=== PATIENT | female | born 1960 | race Caucasian/White ===

== ENCOUNTER 2023-09-14 10:06 | Outpatient (RCR) | payer MEDICARE, OTHER, SELFPAY ==
[2023-08-30] VITALS (9 sets, daily range): BP systolic 117–146; BP diastolic 66–91
[2023-08-30] MEDS: SOLU-MEDROL PF 1.91999999999999993 MG IV (11:21)
[2023-08-30] MEDS: TYLENOL 650 MG PO (11:21)
[2023-08-30] MEDS: BENADRYL 50.5 MG IV (11:22)
[2023-08-30] MEDS: RITUXAN 250 MG IV (11:51)
[2023-09-14] VITALS (9 sets, daily range): BP systolic 112–134; BP diastolic 67–83
[2023-09-14] MEDS: BENADRYL 50.5 MG IV (10:44)
[2023-09-14] MEDS: TYLENOL 650 MG PO (10:45)
[2023-09-14] MEDS: SOLU-MEDROL PF 1.91999999999999993 MG IV (10:45)
[2023-09-14] MEDS: RITUXAN 250 MG IV (11:14)
== END 2023-09-18 08:50 | disposition home or self-care (01) ==
LOC: OID 10:06
PROVIDERS: ATTENDING PHYSICIAN Internal Medicine Rheumatology; FAMILY PHYSICIAN Family Medicine; PRIMARYCARE PHYSICIAN Internal Medicine
DX: M06.9 Rheumatoid arthritis, unspecified (principal)
CPT/HCPCS: 96367; 96413; 96415; J9312

== ENCOUNTER → 2024-01-23 14:21 | Outpatient (REF) | payer MEDICARE, OTHER, SELFPAY | LOC: WDC 14:21 | PROVIDERS: ATTENDING PHYSICIAN Family Medicine | DX: Z12.31 Encounter for screening mammogram for malignant neoplasm of breast (principal) | CPT/HCPCS: 77063; 77067 ==

== ENCOUNTER → 2024-02-21 08:54 | Outpatient (REF) | payer MEDICARE, OTHER, SELFPAY | LOC: HWRAD 08:54 | PROVIDERS: ATTENDING PHYSICIAN Family Medicine; OTHER PHYSICIAN Registered Nurse; REFERRING PHYSICIAN Internal Medicine Rheumatology | DX: M85.89 Other specified disorders of bone density and structure, multiple sites (principal) | CPT/HCPCS: 77080 ==

== ENCOUNTER 2024-03-25 09:21 | Outpatient (RCR) | payer MEDICARE, OTHER, SELFPAY ==
[2024-03-11] VITALS (10 sets, daily range): BP systolic 105–130; BP diastolic 68–78
[2024-03-11] MEDS: BENADRYL 50.5 MG IV (11:08)
[2024-03-11] MEDS: SOLU-MEDROL PF 1.92 MG IV (11:08)
[2024-03-11] MEDS: TYLENOL 650 MG PO (11:08)
[2024-03-11] MEDS: RITUXAN 250 MG IV (11:33)
[2024-03-25] VITALS (9 sets, daily range): BP systolic 131–143; BP diastolic 71–88
[2024-03-25] MEDS: TYLENOL 650 MG PO (09:45)
[2024-03-25] MEDS: SOLU-MEDROL PF 1.92 MG IV (09:49)
[2024-03-25] MEDS: BENADRYL 50.5 MG IV (09:50)
[2024-03-25] MEDS: RITUXAN 250 MG IV (10:21)
== END 2024-03-26 14:15 | disposition home or self-care (01) ==
LOC: OID 09:21
PROVIDERS: ATTENDING PHYSICIAN Internal Medicine Rheumatology; FAMILY PHYSICIAN Family Medicine; PRIMARYCARE PHYSICIAN Internal Medicine
DX: M06.9 Rheumatoid arthritis, unspecified (principal)
CPT/HCPCS: 96367; 96375; 96413; 96415; J9312

== ENCOUNTER 2024-09-23 09:54 | Outpatient (RCR) | payer MEDICARE, OTHER, SELFPAY ==
[2024-08-28] MEDS: RECLAST 100 IV (11:27)
[2024-08-28 11:36] VITALS: BP 136/79
[2024-08-28 12:30] VITALS: BP 116/78
[2024-09-09] VITALS (9 sets, daily range): BP systolic 115–126; BP diastolic 62–88
[2024-09-09] MEDS: TYLENOL 650 MG PO (10:33)
[2024-09-09] MEDS: SOLU-MEDROL PF 1.92 MG IV (10:34)
[2024-09-09] MEDS: BENADRYL 50.5 MG IV (10:34)
[2024-09-09] MEDS: RITUXAN 250 MG IV (11:04)
[2024-09-23] VITALS (10 sets, daily range): BP systolic 108–131; BP diastolic 58–74
[2024-09-23] MEDS: SOLU-MEDROL PF 1.92 MG IV (10:29)
[2024-09-23] MEDS: TYLENOL 650 MG PO (10:29)
[2024-09-23] MEDS: BENADRYL 50.5 MG IV (10:29)
[2024-09-23] MEDS: RITUXAN 250 MG IV (10:53)
== END 2024-09-23 23:59 | disposition home or self-care (01) ==
LOC: OID 09:54
PROVIDERS: ATTENDING PHYSICIAN Internal Medicine Rheumatology; FAMILY PHYSICIAN Family Medicine; PRIMARYCARE PHYSICIAN Internal Medicine
DX: M81.0 Age-related osteoporosis without current pathological fracture (principal); K76.0 Fatty (change of) liver, not elsewhere classified; M06.9 Rheumatoid arthritis, unspecified; Z51.81 Encounter for therapeutic drug level monitoring
CPT/HCPCS: 96365; 96367; 96375; 96413; 96415; J3489; J9312

== ENCOUNTER → 2025-01-23 10:44 | Outpatient (REF) | payer MEDICARE, OTHER, SELFPAY | LOC: HWWDC 10:44 | PROVIDERS: ATTENDING PHYSICIAN Obstetrics & Gynecology; FAMILY PHYSICIAN Family Medicine | DX: Z12.31 Encounter for screening mammogram for malignant neoplasm of breast (principal) | CPT/HCPCS: 77063; 77067 ==

== ENCOUNTER 2025-03-25 09:58 | Outpatient (RCR) | payer MEDICARE, OTHER, SELFPAY ==
[2025-03-25] VITALS (9 sets, daily range): BP systolic 122–155; BP diastolic 70–89
[2025-03-25] MEDS: TYLENOL 650 MG PO (10:31)
[2025-03-25] MEDS: BENADRYL 50.5 MG IV (10:32)
[2025-03-25] MEDS: SOLU-MEDROL PF 1.92 MG IV (10:32)
[2025-03-25] MEDS: RITUXAN 250 MG IV (11:07)
== END 2025-03-26 23:59 | disposition home or self-care (01) ==
LOC: OID 09:58
PROVIDERS: ATTENDING PHYSICIAN Internal Medicine Rheumatology
DX: M06.9 Rheumatoid arthritis, unspecified (principal)
CPT/HCPCS: 96367; 96375; 96413; 96415; J9312